=== PATIENT | male | born 1945 | race Caucasian/White ===

== ENCOUNTER 2021-06-23 08:50 | Outpatient (CLI) | payer MEDICARE | END 2021-06-23 23:59 | disposition home or self-care (01) | LOC: CFH 08:50 | PROVIDERS: ATTEND Internal Medicine Cardiovascular Disease | DX: I08.8 Other rheumatic multiple valve diseases (principal); R06.02 Shortness of breath; R06.00 Dyspnea, unspecified | CPT/HCPCS: 93306 ==